=== PATIENT | female | born 1980 | race Caucasian/White ===

== ENCOUNTER 2024-12-09 06:26 | Day surgery (SDC) | payer BC ==
[2024-12-07 10:58] VITALS: BMI 23.6
[2024-12-09] MEDS: ceFAZolin SODIUM 1 GM VIAL IVPB ONE
[2024-12-09] MEDS ORDERED: MIDAZOLAM HCL 2 MG/2 ML SINGLE DOSE VIAL ONE (09:16)
[2024-12-09] MEDS ORDERED: PROPOFOL 20 ML ONE (09:16)
[2024-12-09] MEDS ORDERED: oxyCODONE HCL 5 MG TABLET PO PRN (10:07)
[2024-12-09] MEDS ORDERED: IBUPROFEN 400 MG TABLET (FP) PO PRN (10:07)
[2024-12-09] MEDS ORDERED: ACETAMINOPHEN 325 MG TABLET (FP) PO PRN (10:07)
[2024-12-09 12:43] VITALS: TEMP 97.7
[2024-12-09] MEDS ORDERED: ONDANSETRON 4 MG/2 ML VIAL ONE (13:59)
[2024-12-09] MEDS: ONDANSETRON 4 MG/2 ML VIAL IVPUSH PRN (14:04)
[2024-12-09 15:13] VITALS: BP 130/82; PULSE 83; RESP 18
== END 2024-12-09 15:06 | disposition home or self-care (01) ==
LOC: JASU-SURG 06:26
PROVIDERS: ATTEND Obstetrics & Gynecology
PROC: 0UB98ZZ Excision of Uterus, Via Natural or Artificial Opening Endoscopic (ICD-10-PCS; principal; 2024-12-09 10:00)
DX: D25.0 Submucous leiomyoma of uterus (principal); N92.0 Excessive and frequent menstruation with regular cycle
CPT/HCPCS: 88305-TC; 94760